=== PATIENT | male | born 1940 | race Caucasian/White ===

== ENCOUNTER 2024-01-10 22:38 | Emergency (ER) | payer MEDICARE ==
--- NOTE | 2024-01-10 23:16 | ERPHSYRPT ---
- History of Present Illness Time Seen by Provider: 01/10/24 23:00 Source: patient Exam Limitations: no limitations Physician History: The patient, with a history of heart weakness, diabetes, and recent COVID-19 infection, presented with a new onset of generalized weakness, sweating, and mild stomach upset. He denied any vomiting or feeling of needing to vomit. The symptoms were accompanied by a sense of confusion and a change in behavior, described as acting 'funnier than usual.' The patient also reported a feeling of weakness in the legs and shakiness in the arms, which he attributed to the stress of the situation. The patient denied any recent falls, changes in speech, difficulty swallowing, or unilateral weakness. He also denied any new medications, with the exception of Savella, which was started three months prior. The patient reported taking an injection of Ozempic approximately thirty minutes before the onset of symptoms. The patient has a known heart weakness but denied any history of stents, pacemakers, or defibrillators. He does not regularly check his blood sugars, but his last A1c was reported to be under 7. The patient also reported frequent urination, averaging three times a night, which he attributed to age. He denied any changes in urinary frequency or any burning sensation during urination. This is the first time the patient has experienced these symptoms in this manner. Timing/Duration: today Severity: moderate Character of Deficits: none Deficits: weak Baseline/Normal Cognition: alert oriented x 3 Current Cognition: alert oriented x 3 Baseline Gait: walks w/o assistance Associated Symptoms: confusion, weakness, No fever, No chills, No loss of consciousness, No nausea, No vomiting, No numbness/tingling in legs/feet, No s lurred speech, No trouble walking, No vision changes, No chest pain, No headache Allergies/Adverse Reactions: No Known Drug Allergies Allergy (Verified 01/10/24 23:21) Home Medications: Apixaban [Eliquis] 5 mg PO DAILY 01/10/24 [History] Canagliflozin [Invokana] 300 mg PO DAILY 01/10/24 [History] Finasteride 5 mg [Proscar 5 MG] 5 mg PO DAILY 01/10/24 [History] Folic Acid/Vit B Complex and C [Folbee Plus Tablet] 5 mg PO DAILY 01/10/24 [History] Insulin Glargine/Lixisenatide [Soliqua 100 Unit-33 Mcg/ml Pen] 1 ampul IJ DAILY PRN PRN 01/10/24 [History] Midodrine HCl [Proamatine] 5 mg PO TID 01/10/24 [History] Silodosin 8 mg PO DAILY 01/10/24 [History] Sitagliptin Phos/Metformin HCl [Janumet Xr 100-1,000 mg Tablet] 1 each PO DAILY 01/10/24 [History] Vericiguat [Verquvo] 5 mg PO DAILY 01/10/24 [History] - Review of Systems All Other Systems: Reviewed and Negative - Past Medical History Pertinent Past Medical History: Yes Neurological History: No Pertinent History, Peripheral Neuropathy ENT History: No Pertinent History Cardiac History: Deep Vein Thrombosis, Other Respiratory History: No Pertinent History Endocrine Medical History: Diabetes Type II Musculoskeletal History: No Pertinent History, Rheumatoid Arthritis GI Medical History: GERD History: Other Psycho-Social History: No Pertinent History Male Reproductive Disorders: Prostate Problems Other Medical History: PSH/PMH: HYPOTENSION, GALL BLADDER, VISON DEFICITS, BLOOD CLOT FILTER PLACEMENT, T1-6 FUSION - Past Surgical History Past Surgical History: No - Social History Smoking Status: Former smoker How long have you smoked: 5 Exposure to second hand smoke: No Drug Use: none - Nursing Vital Signs Nursing Vital Signs: Initial Vital Signs Temperature 97.1 F 01/10/24 23:04 Pulse Rate 97 H 01/10/24 23:04 Respiratory Rate 18 01/10/24 23:04 Blood Pressure 124/67 01/10/24 23:04 O2 Sat by Pulse Oximetry 94 L 01/10/24 23:04 Pain Scale Pain Intensity 0 - [place] Coma Scale Best Eye Response (Shukri): (4) open spontaneously Best Verbal Response (Shukri): (5) oriented Best Motor Response (Shukri): (6) obeys commands Shukri Total: 15 - Physical Exam General Appearance: no apparent distress Eye Exam: bilateral eye: normal inspection, PERRL, EOMI Ears, Nose, Throat Exam: normal ENT inspection, TMs normal, pharynx normal Neck Exam: normal inspection, non-tender, supple, full range of motion Respiratory: airway intact, crackles/rales, No respiratory distress Cardiovascular: regular rate/rhythm, normal heart sounds, capillary refill <2 sec, No edema Gastrointestinal: soft, No tenderness, No distention Back Exam: normal inspection, normal range of motion, No CVA tenderness Extremity Exam: normal inspection, normal range of motion, No tenderness Mental Status: alert, oriented x 3, cooperative assisted living director Exam: normal hearing, normal speech, PERRL, tongue midline Coordination/Gait: normal finger to nose, normal gait, normal cerebellar function Motor/Sensory: no motor deficit, no sensory deficit, no pronator drift Skin Exam: normal color, warm, dry SpO2 Interpretation: normal O2 Delivery: Room Air - Course Nursing assessment & vital signs reviewed: Yes EKG Interpreted by Me: RATE (92), Sinus Fox, Other (LVH, QTc 547) - Radiology Exams Chest X-ray Interpretation: Interpreted by me, Infiltrates (patchy b/l) - CT Exams Head CT Interpretation: Negative, Tele-radiologist Report Ordered Tests: Active Orders 24 hr Category Date Time Status Circular Knitter STAT Care 01/10/24 23:21 Active EKG-ER Only STAT Care 01/10/24 23:20 Active IV Insertion STAT Care 01/10/24 23:21 Active NPO (ED) STAT Care 01/10/24 23:16 Active CHEST 1 VIEW (PORTABLE) Stat Exams 01/10/24 23:17 Taken HEAD WITHOUT CONTRAST [CT] Stat Exams 01/10/24 22:53 Completed BNPII [NT PRO BNPII] Stat Lab 01/10/24 23:43 Completed CBC W DIFF Stat Lab 01/10/24 23:23 Completed CMP Stat Lab 01/10/24 23:23 Completed LIPID PROFILE Stat Lab 01/10/24 23:23 Completed Lactic Acid Stat Lab 01/10/24 23:20 Completed Lactic Acid Stat Lab 01/11/24 01:26 Received MAGNESIUM Stat Lab 01/10/24 23:23 Completed POCT GLUCOSE Stat Lab 01/10/24 22:51 Completed PROCALCITONIN Stat Lab 01/10/24 23:23 Completed TROPONIN Q4H Lab 01/10/24 23:23 Completed TSH, 3RD Generation Stat Lab 01/10/24 23:23 Completed UA W/RFX UR CULTURE Stat Lab 01/10/24 23:50 Completed Medication Summary Discontinued Medications Generic Name Dose Route Start Last Admin Trade Name Freq PRN Reason Stop Dose Admin Sodium Chloride 1,000 mls @ 999 mls/hr 01/10/24 23:50 01/11/24 01:00 Sodium Chloride 0.9% 1000 Ml IV 01/11/24 00:50 Infused .Q1H1M STA Infusion Sodium Chloride Confirm 01/10/24 23:58 Sodium Chloride 0.9% 1000 Ml Administered 01/10/24 23:59 Dose 1,000 mls @ ud .ROUTE .STK-MED ONE Lab/Rad Data: Laboratory Result Diagrams 01/10/24 23:23 01/10/24 23:23 Laboratory Results 01/10/24 01/10/24 01/10/24 Range/Units 23:50 23:43 23:23 WBC (4.23-9.07) x10^3/uL RBC (4.63-6.08) x10^6/uL Hgb (13.7-17.5) g/dL Hct (40.1-51.0) % MCV (79.0-92.2) fL MCH (25.7-32.2) pg MCHC (32.3-36.5) g/dL RDW (11.6-14.4) % Plt Count (163-337) x10^3/uL MPV (9.4-12.4) fL Gran % (34.0-67.9) % Immature Gran % (Auto) (0.001-0.429) % Nucleat RBC Rel Count (0.00-0.2) % Eos # (Auto) (0.04-0.54) x10^3/uL Immature Gran # (Auto) (0.001-0.031) x10^3u/L Absolute Lymphs (auto) (1.32-3.57) x10^3/uL Absolute Monos (auto) (0.30-0.82) x10^3/uL Absolute Nucleated RBC (0.00-0.012) x10^3u/L Lymphocytes % (21.8-53.1) % Monocytes % (5.3-12.2) % Eosinophils % (0.8-7.0) % Basophils % (0.2-1.2) % Absolute Granulocytes (1.78-5.38) x10^3/uL Basophils # (0.01-0.08) x10^3/uL Sodium (135-145) mmol/L Potassium (3.5-5.1) mmol/L Chloride (98-107) mmol/L Carbon Dioxide (22-30) mmol/L Anion Gap (5-15) MEQ/L BUN (9-20) mg/dL Creatinine (0.66-1.25) mg/dL Estimated GFR ML/MIN Glucose (74-106) mg/dL POC Glucometer (74 to 106) mg/dL Hemoglobin A1c 7.36 H (4.5-6.0) % Lactic Acid (0.4-2.0) Calcium (8.4-10.2) mg/dL Magnesium (1.6-2.3) mg/dL Total Bilirubin (0.2-1.3) mg/dL AST (17-59) U/L ALT (0-50) U/L Alkaline Phosphatase (38-126) U/L Troponin I (0.000-0.033) ng/mL NT-Pro-B Natriuret Pep 1010 (<300) pg/mL Serum Total Protein (6.3-8.2) g/dL Albumin (3.5-5.0) g/dL Triglycerides (30-150) mg/dL Cholesterol (50-200) mg/dL LDL Cholesterol (30-100) mg/dL HDL Cholesterol (40-60) mg/dL Heart Disease Risk Ratio Procalcitonin (0.030-0.080) ng/mL TSH 3rd Generation (0.470-4.680) mIU/L Urine Color Yellow (Yellow) Urine Appearance Clear (Clear) Urine pH 5.0 (4.6-8.0) Ur Specific [place] 1.020 (1.005-1.030) Urine Protein Negative (Negative) Urine Glucose (UA) >=1000 A (Negative) mg/dL Urine Ketones Negative (Negative) Urine Blood Negative (Negative) Urine Nitrite Negative (Negative) Urine Bilirubin Negative (Negative) Urine Urobilinogen 0.2 (0.2) mg/dL Ur Leukocyte Esterase Negative (Negative) U Hyaline Cast (Auto) NONE SEEN (0-2) /LPF Urine Microscopic RBC 0-2 (0-5) /HPF Urine Microscopic WBC 3-5 (0-5) /HPF Ur Epithelial Cells None Seen (None Seen) /HPF Urine Bacteria None Seen (None Seen) /HPF Urine Culture Reflexed NO (NO) 01/10/24 01/10/24 01/10/24 Range/Units 23:23 23:23 23:23 WBC (4.23-9.07) x10^3/uL RBC (4.63-6.08) x10^6/uL Hgb (13.7-17.5) g/dL Hct (40.1-51.0) % MCV (79.0-92.2) fL MCH (25.7-32.2) pg MCHC (32.3-36.5) g/dL RDW (11.6-14.4) % Plt Count (163-337) x10^3/uL MPV (9.4-12.4) fL Gran % (34.0-67.9) % Immature Gran % (Auto) (0.001-0.429) % Nucleat RBC Rel Count (0.00-0.2) % Eos # (Auto) (0.04-0.54) x10^3/uL Immature Gran # (Auto) (0.001-0.031) x10^3u/L Absolute Lymphs (auto) (1.32-3.57) x10^3/uL Absolute Monos (auto) (0.30-0.82) x10^3/uL Absolute Nucleated RBC (0.00-0.012) x10^3u/L Lymphocytes % (21.8-53.1) % Monocytes % (5.3-12.2) % Eosinophils % (0.8-7.0) % Basophils % (0.2-1.2) % Absolute Granulocytes (1.78-5.38) x10^3/uL Basophils # (0.01-0.08) x10^3/uL Sodium 141 (135-145) mmol/L Potassium 3.6 (3.5-5.1) mmol/L Chloride 106 (98-107) mmol/L Carbon Dioxide 22 (22-30) mmol/L Anion Gap 16.7 H (5-15) MEQ/L BUN 36 H (9-20) mg/dL Creatinine 1.87 H (0.66-1.25) mg/dL Estimated GFR 35.0 ML/MIN Glucose 99 (74-106) mg/dL POC Glucometer (74 to 106) mg/dL Hemoglobin A1c (4.5-6.0) % Lactic Acid (0.4-2.0) Calcium 9.4 (8.4-10.2) mg/dL Magnesium 2.1 (1.6-2.3) mg/dL Total Bilirubin 0.50 (0.2-1.3) mg/dL AST 29 (17-59) U/L ALT 31 (0-50) U/L Alkaline Phosphatase 70 (38-126) U/L Troponin I < 0.012 (0.000-0.033) ng/mL NT-Pro-B Natriuret Pep (<300) pg/mL Serum Total Protein 7.8 (6.3-8.2) g/dL Albumin 4.2 (3.5-5.0) g/dL Triglycerides 155 H (30-150) mg/dL Cholesterol 192 (50-200) mg/dL LDL Cholesterol 125 H (30-100) mg/dL HDL Cholesterol 44 (40-60) mg/dL Heart Disease Risk Ratio 4.0 Procalcitonin 0.063 (0.030-0.080) ng/mL TSH 3rd Generation 6.127 H (0.470-4.680) mIU/L Urine Color (Yellow) Urine Appearance (Clear) Urine pH (4.6-8.0) Ur Specific [place] (1.005-1.030) Urine Protein (Negative) Urine Glucose (UA) (Negative) mg/dL Urine Ketones (Negative) Urine Blood (Negative) Urine Nitrite (Negative) Urine Bilirubin (Negative) Urine Urobilinogen (0.2) mg/dL Ur Leukocyte Esterase (Negative) U Hyaline Cast (Auto) (0-2) /LPF Urine Microscopic RBC (0-5) /HPF Urine Microscopic WBC (0-5) /HPF Ur Epithelial Cells (None Seen) /HPF Urine Bacteria (None Seen) /HPF Urine Culture Reflexed (NO) 01/10/24 01/10/24 01/10/24 Range/Units 23:23 23:20 22:51 WBC 8.0 (4.23-9.07) x10^3/uL RBC 4.63 (4.63-6.08) x10^6/uL Hgb 13.7 (13.7-17.5) g/dL Hct 41.1 (40.1-51.0) % MCV 88.8 (79.0-92.2) fL MCH 29.6 (25.7-32.2) pg MCHC 33.3 (32.3-36.5) g/dL RDW 13.4 (11.6-14.4) % Plt Count 201 (163-337) x10^3/uL MPV 10.1 (9.4-12.4) fL Gran % 58.7 (34.0-67.9) % Immature Gran % (Auto) 0.4 (0.001-0.429) % Nucleat RBC Rel Count 0.0 (0.00-0.2) % Eos # (Auto) 0.22 (0.04-0.54) x10^3/uL Immature Gran # (Auto) 0.03 (0.001-0.031) x10^3u/L Absolute Lymphs (auto) 2.23 (1.32-3.57) x10^3/uL Absolute Monos (auto) 0.73 (0.30-0.82) x10^3/uL Absolute Nucleated RBC 0.00 (0.00-0.012) x10^3u/L Lymphocytes % 27.9 (21.8-53.1) % Monocytes % 9.1 (5.3-12.2) % Eosinophils % 2.8 (0.8-7.0) % Basophils % 1.1 (0.2-1.2) % Absolute Granulocytes 4.68 (1.78-5.38) x10^3/uL Basophils # 0.09 H (0.01-0.08) x10^3/uL Sodium (135-145) mmol/L Potassium (3.5-5.1) mmol/L Chloride (98-107) mmol/L Carbon Dioxide (22-30) mmol/L Anion Gap (5-15) MEQ/L BUN (9-20) mg/dL Creatinine (0.66-1.25) mg/dL Estimated GFR ML/MIN Glucose (74-106) mg/dL POC Glucometer 80 (74 to 106) mg/dL Hemoglobin A1c (4.5-6.0) % Lactic Acid 2.2 H (0.4-2.0) Calcium (8.4-10.2) mg/dL Magnesium (1.6-2.3) mg/dL Total Bilirubin (0.2-1.3) mg/dL AST (17-59) U/L ALT (0-50) U/L Alkaline Phosphatase (38-126) U/L Troponin I (0.000-0.033) ng/mL NT-Pro-B Natriuret Pep (<300) pg/mL Serum Total Protein (6.3-8.2) g/dL Albumin (3.5-5.0) g/dL Triglycerides (30-150) mg/dL Cholesterol (50-200) mg/dL LDL Cholesterol (30-100) mg/dL HDL Cholesterol (40-60) mg/dL Heart Disease Risk Ratio Procalcitonin (0.030-0.080) ng/mL TSH 3rd Generation (0.470-4.680) mIU/L Urine Color (Yellow) Urine Appearance (Clear) Urine pH (4.6-8.0) Ur Specific [place] (1.005-1.030) Urine Protein (Negative) Urine Glucose (UA) (Negative) mg/dL Urine Ketones (Negative) Urine Blood (Negative) Urine Nitrite (Negative) Urine Bilirubin (Negative) Urine Urobilinogen (0.2) mg/dL Ur Leukocyte Esterase (Negative) U Hyaline Cast (Auto) (0-2) /LPF Urine Microscopic RBC (0-5) /HPF Urine Microscopic WBC (0-5) /HPF Ur Epithelial Cells (None Seen) /HPF Urine Bacteria (None Seen) /HPF Urine Culture Reflexed (NO) - Progress Progress: improved Progress Note: Acute onset of weakness, sweating, and mild confusion Symptoms occurred shortly after administration of new diabetic drug. No focal neurological deficits on examination. No history of similar episodes. -Plan to investigate further with appropriate laboratory and imaging studies to rule out serious causes such as stroke, myocardial infarction, or severe hypoglycemia. Diabetes Mellitus Last A1c was under 7. Patient is on Ozempic. -Continue current management. Monitor blood glucose levels closely given the recent episode. Cardiac history Patient reports a "weakness" in the heart but no history of stents, pacemakers, or defibrillators. -Continue current cardiac management. Consider cardiac workup given the recent episode and cardiac history. Nocturia Reports waking up three times a night to urinate. -No change in management at this time. Monitor for any changes or worsening of symptoms. CT head neg. Labs show normal WBC, normal Hb, normal electrolytes, Cr 1.87 with unknown baseline, normal BNP, normal procal, lactate 2.2, TSH 6.4 will order T4. 1L NS boulus given for MARIA DOLORES and elevated lactate. UA showed glucosuria. Advised follow up with PCP for further evaluation and to discuss new medication. Counseled pt/family regarding: lab results, diagnosis, need for follow-up, rad results - Departure Departure Disposition: Home Clinical Impression: Weakness, MARIA DOLORES (acute kidney injury), Elevated TSH, Diabetes mellitus Condition: Good Critical Care Time: No Referrals: RENE GRAMAJO MD [Primary Care Provider] - Follow up/PCP as directed Instructions: Weakness ED
[2024-01-10 23:20] VITALS: TEMP 97.1
--- NOTE | 2024-01-10 23:21 | XRAY ---
CLINICAL HISTORY: weakness COMPARISON: None. TECHNIQUE: An axial non-contrast CT scan of the brain was performed from the skull base to the high parietal region. One of the following dose-reduction techniques was utilized for this exam. Automated exposure control, adjustment of the mA and/or kV according to patient size, and use of iterative reconstruction. FINDINGS: There are a few tiny ill-defined [id number] areas noted bilaterally in the subcortical deep white matter, suggestive of microvascular ischemic changes. The ventricular system, cortical sulci, and basal cisterns are prominent and consistent with senile changes. Jansen-white matter differentiation is maintained. No midline shifts or deformity. No intracerebral or extra axial hematoma. Normal CT appearance of the posterior fossa structures namely the cerebellar hemispheres, brainstem, and cerebellar peduncles. The bony structures in the skull base are unremarkable. There are no definite calvarium fractures. Partial opacification of the left maxillary sinus with calcific focus inside the rest of the sinuses are within normal limits Septum nasi shows mild deviation to the left with a bony spur. IMPRESSION: 1. No intra or extra-axial hematomas or parenchymal territorial hypodense areas to suggest acute ischemic insult. 2. Microvascular white matter ischemic changes and senile changes. 3. Early changes of stroke may not be detected on a CT scan. If there is strong clinical suspicion of stroke, then suggest MRI with diffusion-weighted imaging. 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 Electronically Signed by: Saira Carroll MD. (01/10/2024 23:17:49 EDT)
[2024-01-10 23:29] LABS: Absolute Neutrophil Ct (ANC) 4.68 x10^3/uL (1.78-5.38); BASOPHIL % 1.1 % (0.2-1.2); Basophil (Absolute #) 0.09 x10^3/uL (0.01-0.08); Eosinophil % 2.8 % (0.8-7.0); Eosinophil (Absolute #) 0.22 x10^3/uL (0.04-0.54); Hematocrit 41.1 % (40.1-51.0); Hemoglobin 13.7 g/dL (13.7-17.5); IMMATURE GRAN # 0.03 x10^3u/L (0.001-0.031); IMMATURE GRAN % 0.4 % (0.001-0.429); Lymphocyte (Absolute #) 2.23 x10^3/uL (1.32-3.57); Lymphocytes % 27.9 % (21.8-53.1); Mean Cell Volume 88.8 fL (79.0-92.2); Mean Corpuscular Hemoglobin 29.6 pg (25.7-32.2); Mean Corpuscular Hgb Concent. 33.3 g/dL (32.3-36.5); Mean Platelet Volume 10.1 fL (9.4-12.4); Monocyte (Absolute #) 0.73 x10^3/uL (0.30-0.82); Monocytes % 9.1 % (5.3-12.2); Neutrophil % 58.7 % (34.0-67.9); Platelet Count 201 x10^3/uL (163-337); Red Blood Count 4.63 x10^6/uL (4.63-6.08); Red Cell Distribution Width 13.4 % (11.6-14.4)
[2024-01-10 23:45] LABS: ALBUMIN 4.2 g/dL (3.5-5.0); ANION GAP 16.7 MEQ/L (5-15); BILIRUBIN,TOTAL 0.5 mg/dL (0.2-1.3); Calcium 9.4 mg/dL (8.4-10.2); Creatinine 1 1.87 mg/dL (0.66-1.25); Potassium 3.6 mmol/L (3.5-5.1); Total Protein 7.8 g/dL (6.3-8.2)
[2024-01-10] MEDS ORDERED: Sodium Chloride 0.9% 1000 ML 1,000 ML ONE (23:58)
[2024-01-10] MEDS: Sodium Chloride 0.9% 1000 ML 1,000 ML IV STA (23:59)
[2024-01-11 00:18] LABS: MAGNESIUM 2.1 mg/dL (1.6-2.3); PROCALCITONIN 0.063 ng/mL (0.030-0.080); TSH, 3RD Generation 6.127 mIU/L (0.470-4.680)
[2024-01-11 00:30] LABS: Appearance Clear (Clear); Bacteria None Seen /HPF (None Seen); Bilirubin Negative (Negative); Blood Negative (Negative); Epithelial Cells None Seen /HPF (None Seen); Glucose, Urine >=1000 mg/dL (Negative); Hyaline Casts NONE SEEN /LPF (0-2); Ketones Negative (Negative); Leukocyte Esterase Negative (Negative); Nitrite Negative (Negative); Protein,Urine Dip Negative (Negative); RBC 0-2 /HPF (0-5); Urobilinogen 0.2 mg/dL (0.2)
[2024-01-11 01:31] VITALS: O2SAT 98
[2024-01-11 02:03] VITALS: BP 115/69; PULSE 68; RESP 14
--- NOTE | 2024-01-11 07:32 | XRAY ---
Indication: Short of breath. Weakness. Comparison: August 28, 2017 Portable chest remains inflated and clear. Heart not enlarged for AP portable technique. Bony thorax intact with new incompletely visualized upper thoracic spinal fusion hardware. Impression: Continued nonacute chest with chronic features.
== END 2024-01-11 02:04 | disposition home or self-care (01) ==
LOC: ED 22:38
DX: N17.9 Acute kidney failure, unspecified (principal); R53.1 Weakness; R94.6 Abnormal results of thyroid function studies; E11.42 Type 2 diabetes mellitus with diabetic polyneuropathy; R41.0 Disorientation, unspecified; Z79.01 Long term (current) use of anticoagulants; Z79.85 Long-term (current) use of injectable non-insulin antidiabetic drugs; Z79.84 Long term (current) use of oral hypoglycemic drugs; Z79.4 Long term (current) use of insulin; Z79.899 Other long term (current) drug therapy; Z86.718 Personal history of other venous thrombosis and embolism
CPT/HCPCS: 36000; 36415; 70450; 71045; 80053; 80061; 81001; 82947; 83036; 83605; 83721; 83735; 83880; 84145; 84439; 84443; 84484; 85025; 93005; 93041; 96360; 99284